=== PATIENT | male | born 1945 | race Caucasian/White ===

== ENCOUNTER → 2020-11-30 | Outpatient (CLI) | payer MEDICARE ==
[~2020-11-30] MED LIST: OMNIPAQUE 350 MG/ML, 100ML BOTTLE ONE
== END | disposition home or self-care (01) ==
LOC: CFH 12:26
PROVIDERS: ATTEND Surgery
DX: I65.23 Occlusion and stenosis of bilateral carotid arteries (principal)
CPT/HCPCS: 70496; 70498; 82565; Q9967

== ENCOUNTER 2020-12-14 05:51 | Inpatient (IN) | payer MEDICARE ==
[2020-12-11 12:06] LABS: BASOPHILS % (AUTO) 1 % (0-1); EOSINOPHILS % (AUTO) 2 % (1-7); LYMPHOCYTES % (AUTO) 35 % (22-44); MEAN CORPUSCULAR HEMOGLOBIN 31.2 pg (27.5-34.5); MEAN CORPUSCULAR HGB CONC 33.9 g/dL (33.2-36.2); MEAN PLATELET VOLUME 7.7 fL (7.4-10.4); MONOCYTES % (AUTO) 7 % (2-9); NEUTROPHILS % (AUTO) 55 % (42-75); PLATELET COUNT 220 x10^3/uL (130-400); RED BLOOD COUNT 4.29 x10^6/uL (4.38-5.82); RED CELL DISTRIBUTION WIDTH 13.4 % (9.4-14.8)
[2020-12-11 12:14] LABS: ALANINE AMINOTRANSFERASE 33 U/L (12-78); ALBUMIN 3.9 g/dL (3.4-5.0); ANION GAP 7 mmol/L (5-15); CALCIUM 9.6 mg/dL (8.5-10.1); CHLORIDE 105 mmol/L (98-107); CREATININE 1.68 mg/dL (0.7-1.3)
[2020-12-11 12:16] LABS: ALKALINE PHOSPHATASE 91 U/L (45-117); BILIRUBIN,TOTAL 0.4 mg/dL (0.2-1.0); TOTAL PROTEIN 7.4 g/dL (6.4-8.2)
[~2020-12-14] VITALS: Ht 185.4 cm; Wt 91.1 kg
[~2020-12-14 05:51] MED LIST changes: +ASCO100018 PO; +ASCO1CAP2 PO; +ASPI81TA45 PO; +ATOR80TA PO; +CALC1CAP8 PO; +CELE200C PO; +CHOL10003 PO; +GARL100T PO; +GLUC1CAP18 PO; +LISI2.5T PO; +MULT-658 PO; +OMEG1CAP23 PO; -OMNIPAQUE 350 MG/ML, 100ML BOTTLE ONE; +SAW/1TAB2 PO; +TERA5CAP3 PO; +UBID100C41 PO; +VITA1TAB19 PO; +[UNRECOGNIZED DRUG - OTHER] PO; +cinsulin PO; +turmeric PO
[2020-12-14] MEDS ORDERED: FENTANYL PF 250 MCG/5ML ONE (06:49)
[2020-12-14] MEDS ORDERED: CHLORHEXIDINE 15 ML UDC PO ONE (07:00)
[2020-12-14] MEDS ORDERED: LACTATED RINGERS 1,000 ML IV SCH (07:00)
[2020-12-14] MEDS ORDERED: HEPARIN 1,000 UNITS/ML, 10ML ONE (07:04)
[2020-12-14] MEDS ORDERED: LIDOCAINE 1%, 20ML ONE (07:04)
[2020-12-14] MEDS ORDERED: PROTAMINE SULFATE 10 MG/ML, 5ML ONE (07:04)
[2020-12-14] MEDS ORDERED: THROMBIN 5,000 UNIT VIAL TP ONE (07:04)
[2020-12-14] MEDS ORDERED: LIDOCAINE-MPF 1%, 2ML ONE (07:13)
[2020-12-14] MEDS ORDERED: ONDANSETRON 2MG/ML, 2ML IVPush PRN (07:30)
[2020-12-14] MEDS ORDERED: HYDROmorphone 1 MG/ML, 1ML INJ IVPush PRN (07:30)
[2020-12-14] MEDS ORDERED: hydrALAzine 20 MG/ML, 1ML IV PRN (07:30)
[2020-12-14] MEDS ORDERED: MEPERIDINE/PF 25MG/0.5ML IVPush PRN (07:30)
[2020-12-14] MEDS ORDERED: LABETALOL 5MG/ML, 20ML IV PRN (07:30)
[2020-12-14] MEDS ORDERED: morphine SULFATE 10 MG/ML, 1ML IVPush PRN (07:30)
[2020-12-14] MEDS ORDERED: PHENYLEPHRINE 10 MG/ML ONE (07:36)
[2020-12-14] MEDS ORDERED: ASPIRIN 81 MG TABLET EC ONE (07:38)
[2020-12-14] MEDS ORDERED: ASPIRIN 81 MG TABLET CHEW PO ONE (08:00)
[2020-12-14] MEDS ORDERED: LIDOCAINE 1%, 2ML INFIL ONE (08:00)
[2020-12-14] MEDS ORDERED: VASOPRESSIN 20 UNIT/ML, 1ML ONE ×2 (08:01→08:50)
[2020-12-14] MEDS ORDERED: EPHEDRINE 50 MG/ML, 1ML ONE (08:03)
[2020-12-14] MEDS ORDERED: HEPARIN 1,000 UNITS/ML, 10ML IV ONE (08:06)
[2020-12-14] MEDS ORDERED: PROPOFOL 10 MG/ML, 20ML ONE (08:43)
[2020-12-14] MEDS ORDERED: CEFAZOLIN 1,000 MG ONE (08:43)
[2020-12-14] MEDS ORDERED: ROCURONIUM 10MG/ML,5ML ONE (08:43)
[2020-12-14] MEDS ORDERED: GLYCOPYRROLATE 0.2MG/1ML, 5ML ONE (08:43)
[2020-12-14] MEDS ORDERED: NEOSTIGMINE 1 MG/ML, 10ML ONE (08:43)
[2020-12-14] MEDS ORDERED: FENTANYL PF 100 MCG/2ML ONE ×2 (10:17→11:13)
[2020-12-14] MEDS: FENTANYL PF 100 MCG/2ML IV PRN ×7 (10:17→12:37)
[2020-12-14] MEDS ORDERED: OXYcodone 5 MG/5 ML ORAL.SOL UDC ONE ×2 (10:50→11:34)
[2020-12-14] MEDS: OXYcodone 5 MG/5 ML ORAL.SOL UDC PO PRN ×2 (10:53→11:40)
[2020-12-14] MEDS ORDERED: GLYCOPYRROLATE 0.4 MG/2 ML, 2ML ONE (11:34)
[2020-12-14] MEDS ORDERED: GLYCOPYRROLATE 0.2MG/1ML, 5ML IVPush ONE (12:00)
[2020-12-14] MEDS ORDERED: ONDANSETRON 2MG/ML, 2ML IV PRN (16:30)
[2020-12-14] MEDS: LACTATED RINGERS 1,000 ML IV SCH (16:30)
[2020-12-14] MEDS ORDERED: HYDROcodone/APAP 5/325 TABLET PO PRN (16:30)
[2020-12-14 19:04] VITALS: BP 114/60
[2020-12-14] MEDS: SODIUM CHLORIDE FLUSH 10ML SYR IVF SCH (20:10)
[2020-12-14] MEDS: CALCIUM/VITAMIN D3 250-125 TABLET PO SCH (20:11)
[2020-12-14] MEDS: OMEGA-3/FISH OIL CAPSULE PO SCH (20:11)
[2020-12-14] MEDS ORDERED: ATORVASTATIN 80 MG TABLET PO SCH (21:00)
[2020-12-15 00:52] VITALS: BP 116/50
[2020-12-15] MEDS: LACTATED RINGERS 1,000 ML IV SCH (02:03)
[2020-12-15 04:08] VITALS: BP 127/69
[2020-12-15] MEDS ORDERED: HEPARIN 5,000 UNITS/ML, 1ML SQ SCH (06:00)
[2020-12-15] MEDS ORDERED: ASPIRIN 81 MG TABLET EC PO SCH (06:00)
[2020-12-15 07:46] VITALS: BP 117/62
[2020-12-15] MEDS: CALCIUM/VITAMIN D3 250-125 TABLET PO SCH (08:42)
[2020-12-15] MEDS: OMEGA-3/FISH OIL CAPSULE PO SCH (08:42)
[2020-12-15] MEDS: SODIUM CHLORIDE FLUSH 10ML SYR IVF SCH (08:43)
[2020-12-15] MEDS ORDERED: CHOLECALCIFEROL 1,000 UNIT TABLET PO SCH (09:00)
[2020-12-15] MEDS ORDERED: ASCORBIC ACID 500 MG TABLET PO SCH (09:00)
[2020-12-15] MEDS ORDERED: MULTIVITAMIN 1 TABLET PO SCH (09:00)
[2020-12-15] MEDS ORDERED: LISINOPRIL 5 MG TABLET PO SCH (09:00)
[2020-12-15] MEDS ORDERED: TERAZOSIN 5MG CAPSULE PO SCH (09:00)
[2020-12-15] MEDS ORDERED: MULTIVITS,STRESS FORMULA 1 TABLET PO SCH (09:00)
[2020-12-15] MEDS ORDERED: TRAM50TA2 PO (11:13)
== END 2020-12-15 12:50 | disposition home or self-care (01) | DRG 38 ==
LOC: ORIP 05:51 → 4NE 14:00
PROVIDERS: ADMIT Surgery; ATTEND Surgery
PROC: 03UK0KZ Supplement Right Internal Carotid Artery with Nonautologous Tissue Substitute, Open Approach (ICD-10-PCS; 2020-12-14)
PROC: 03CK0ZZ Extirpation of Matter from Right Internal Carotid Artery, Open Approach (ICD-10-PCS; principal; 2020-12-14 07:30)
DX: I65.23 Occlusion and stenosis of bilateral carotid arteries (principal); I74.5 Embolism and thrombosis of iliac artery; E11.9 Type 2 diabetes mellitus without complications; Z85.820 Personal history of malignant melanoma of skin; Z98.42 Cataract extraction status, left eye; Z98.41 Cataract extraction status, right eye; Z82.49 Family history of ischemic heart disease and other diseases of the circulatory system; Z80.8 Family history of malignant neoplasm of other organs or systems; Z83.6 Family history of other diseases of the respiratory system; Z88.8 Allergy status to other drugs, medicaments and biological substances
CPT/HCPCS: 36415; 71046; 80053; 82962; 85025; 85347; 86850; 86900; 88304; 88311; 93005; G0378; J0690; J1644; J2704; J2710; J2720; J3010; C1768; J2370; J7120